=== PATIENT | male | born 1975 | race Caucasian/White ===

== ENCOUNTER 2018-03-13 04:00 | Emergency (ER) | payer SELFPAY ==
[2018-03-13] MEDS ORDERED: LIDOCAINE VISCOUS 2% SOLN 15 ML UDC ONE (04:50)
[2018-03-13] MEDS ORDERED: MAGNE/ALUM HYDROXD 30 ML UCUP ONE (04:50)
[2018-03-13 05:03] LABS: Absolute Lymphocytes (CBC) 2.4 K/uL (0.7-4.9); Absolute Monocytes 0.9 K/uL (0.1-1.3); Absolute Neutrophil 4.5 K/uL (1.8-8.0); Basophils % 0.6 % (0-1.3); Eosinophils % 2.8 % (0-4.4); Hematocrit 40.4 % (39.6-49.0); Lymphocytes % 29.6 % (15.3-44.8); MCH 34.1 pg (27.0-35.0); MCV 98.9 fL (80-100); MPV 8.2 fL (7.6-11.3); Monocytes % 11.4 % (3.3-12.3); RBC Red Blood Cell Count 4.08 M/uL (4.33-5.43)
[2018-03-13 05:26] LABS: ALT/SGPT 37 U/L (12-78); AST/SGOT 20 U/L (15-37); Albumin 3.5 g/dL (3.4-5.0); Alkaline Phosphatase 54 U/L (45-117); BUN Blood Urea Nitrogen 15 mg/dL (7-18); Bicarbonate 28 mmol/L (21-32); Bilirubin Direct 0.1 mg/dL (0-0.2); Bilirubin Total 0.5 mg/dL (0.2-1.0); CKMB Creatine Kinase MB 3.2 ng/mL (0.3-3.6); Creatine Phosphokinase 111 U/L (39-308); Glucose Level 92 mg/dL (74-106); Lipase 181 U/L (73-393); Potassium 4.1 mmol/L (3.5-5.1); Sodium Level 143 mmol/L (136-145)
--- NOTE | 2018-03-13 05:40 | ER ---
Nurse's Notes [facility] Name: Inder Steel Jr Age: 42 yrs Sex: Male : 1975 Arrival Date: 03/13/2018 Time: 04:20 Bed 15 Private MD: Diagnosis: Gastro-esophageal reflux disease;Chest pain, unspecified Presentation: 03/13 04:00 Presenting complaint: EMS states: Reports he started having chest pain 5 hours ago, ea reported n/v/d x 1 about 30 minutes ago. Transition of care: patient was not received from another setting of care. Onset of symptoms was March 13, 2018. Risk Assessment: Do you want to hurt yourself or someone else? Patient reports no desire to harm self or others. Initial Sepsis Screen: Does the patient meet any 2 criteria? No. Patient's initial sepsis screen is negative. Does the patient have a suspected source of infection? No. Patient's initial sepsis screen is negative. Care prior to arrival: None. 04:00 Method Of Arrival: EMS: [facility] ea 04:00 Acuity: ARCENIO 3 ea Triage Assessment: 04:24 General: Appears uncomfortable, Behavior is calm, cooperative, appropriate for age. ea Pain: Complains of pain in chest Pain does not radiate. Pain currently is 9 out of 10 on a pain scale. Quality of pain is described as burning, Pain began 4 hours ago. EENT: No signs and/or symptoms were reported regarding the EENT system. Neuro: Level of Consciousness is awake, alert, obeys commands, Oriented to person, place, time, situation. Cardiovascular: Heart tones S1 S2 present Patient's skin is warm and dry. Rhythm is regular. Respiratory: Airway is patent Respiratory effort is even, unlabored, Respiratory pattern is regular, symmetrical. GI: Bowel sounds present X 4 quads. Reports nausea. : No signs and/or symptoms were reported regarding the genitourinary system. Derm: Skin is pink, warm \T\ dry. Musculoskeletal: Circulation, motion, and sensation intact. Historical: - Allergies: 04:23 No Known Allergies; ea - Home Meds: 04:23 None [Active]; ea - PMHx: 04:23 None; ea - PSHx: 04:23 None; ea - Immunization history:: Adult Immunizations up to date. - Social history:: Smoking status: Patient uses tobacco products, cigars. - Ebola Screening: : No symptoms or risks identified at this time. - Family history:: not pertinent. - Hospitalizations: : No recent hospitalization is reported. Screenin:26 Abuse screen: Denies threats or abuse. Nutritional screening: No deficits noted. ea Tuberculosis screening: No symptoms or risk factors identified. Fall Risk None identified. Assessment: 05:18 Reassessment: Patient and/or family updated on plan of care and expected duration. Pain ea level reassessed. Patient is alert, oriented x 3, equal unlabored respirations, skin warm/dry/pink. Reassessment: Patient states feeling better. Patient states symptoms have improved. Pain: Denies pain. 05:45 Reassessment: Patient and/or family updated on plan of care and expected duration. Pain ea level reassessed. Patient is alert, oriented x 3, equal unlabored respirations, skin warm/dry/pink. Discharge instructions given to patient, verbalized the understanding of instructions. Patient states feeling better. Patient states symptoms have improved. Vital Signs: 04:00 BP 133 / 67; Pulse 70; Resp 18; Temp 97.6; Pulse Ox 99% on R/A; Weight 99.79 kg; Height ea 5 ft. 10 in. (177.80 cm); Pain 9/10; 05:19 BP 116 / 78; Pulse 73; Resp 18; Pulse Ox 96% on R/A; Pain 0/10; ea 04:00 Body Mass Index 31.57 (99.79 kg, 177.80 cm) ea ED Course: 04:00 Arm band placed on right wrist. Patient placed in an exam room, on a stretcher, on ea pulse oximetry. 04:20 Patient arrived in ED. ea 04:23 Triage completed. ea 04:26 Patient has correct armband on for positive identification. Bed in low position. Call ea light in reach. Side rails up X 1. pulmonologist on. Pulse ox on. NIBP on. 04:27 Inserted saline lock: 20 gauge in right antecubital area, using aseptic technique. ea Blood collected. Patient maintains SpO2 saturation greater than 95% on room air. 04:31 Corey Pablo MD is Attending Physician. rn 04:38 Nora Long RN is Primary Nurse. ea 04:55 X-ray completed. Portable x-ray completed in exam room. Patient tolerated procedure kp1 well. 04:58 XRAY Chest (1 view) In Process Unspecified. EDMS 05:39 Uvaldo Cedillo MD is Referral Physician. rn 05:45 No provider procedures requiring assistance completed. IV discontinued, intact, ea bleeding controlled, No redness/swelling at site. Pressure dressing applied. Administered Medications: 04:50 Drug: GI Cocktail without - (Maalox Suspension 30 ml, Lidocaine Liquid 2 % 15 ea ml) Route: PO; 05:18 Follow up: Response: No adverse reaction; Marked relief of symptoms ea Outcome: 05:39 Discharge ordered by . rn 05:46 Discharged to home ambulatory, with family. ea 05:46 Condition: improved 05:46 Discharge instructions given to patient, Instructed on discharge instructions, follow up and referral plans. Demonstrated understanding of instructions, follow-up care. 05:46 Patient left the ED. ea Signatures: Dispatcher [employer] EDMS Corey Pablo MD MD rn Poole, Kathy kp1 Nora Long RN PERLA dougherty
--- NOTE | 2018-03-13 05:40 | EDPHYS ---
Physician Documentation [facility] Name: Inder Steel Jr Age: 42 yrs Sex: Male : 1975 Arrival Date: 03/13/2018 Time: 04:20 Bed 15 Private MD: ED Physician Corey Pablo HPI: 03/13 04:52 This 42 yrs old Male presents to ER via EMS with complaints of Chest Pain > rn 32 y/o. 04:52 The patient or guardian reports chest pain that is located primarily in the substernal rn area. Onset: 5 hour(s) ago. The pain radiates to neck. The chest pain is described as burning. Duration: The patient or guardian reports multiple episodes, that are intermittent. Modifying factors: The symptoms are alleviated by nothing. the symptoms are aggravated by eating. Severity of pain: At its worst the pain was moderate in the emergency department the pain has improved. The patient has experienced similar episodes in the past. Reports pain for months, usually burning pain in throat and chest, happens at night when lays down, no fever/cough, worse tonight, doesn't take antacids, + vomited once. . Historical: - Allergies: 04:23 No Known Allergies; ea - Home Meds: 04:23 None [Active]; ea - PMHx: 04:23 None; ea - PSHx: 04:23 None; ea - Immunization history:: Adult Immunizations up to date. - Social history:: Smoking status: Patient uses tobacco products, cigars. - Ebola Screening: : No symptoms or risks identified at this time. - Family history:: not pertinent. - Hospitalizations: : No recent hospitalization is reported. ROS: 04:52 Constitutional: Negative for fever, chills, and weight loss, Eyes: Negative for injury, rn pain, redness, and discharge, Cardiovascular: Negative for palpitations, and edema, Respiratory: Negative for shortness of breath, cough, wheezing, and pleuritic chest pain, Abdomen/GI: Negative for abdominal pain, diarrhea, and constipation, MS/Extremity: Negative for injury and deformity, Skin: Negative for injury, rash, and discoloration, Neuro: Negative for headache, weakness, numbness, tingling, and seizure. Exam: 04:52 Constitutional: This is a well developed, well nourished patient who is awake, alert, rn and in no acute distress. Head/Face: Normocephalic, atraumatic. Eyes: Pupils equal round and reactive to light, extra-ocular motions intact. Lids and lashes normal. Conjunctiva and sclera are non-icteric and not injected. Cornea within normal limits. Periorbital areas with no swelling, redness, or edema. Neck: Trachea midline, no thyromegaly or masses palpated, and no cervical lymphadenopathy. Supple, full range of motion without nuchal rigidity, or vertebral point tenderness. No Meningismus. Cardiovascular: Regular rate and rhythm with a normal S1 and S2. No gallops, murmurs, or rubs. Normal PMI, no JVD. No pulse deficits. Respiratory: Lungs have equal breath sounds bilaterally, clear to auscultation and percussion. No rales, rhonchi or wheezes noted. No increased work of breathing, no retractions or nasal flaring. Abdomen/GI: Soft, non-tender, with normal bowel sounds. No distension or tympany. No guarding or rebound. No evidence of tenderness throughout. MS/ Extremity: Pulses equal, no cyanosis. Neurovascular intact. Full, normal range of motion. Equal circumference. Neuro: Awake and alert, GCS 15, oriented to person, place, time, and situation. Cranial nerves II-XII grossly intact. Motor strength 5/5 in all extremities. Sensory grossly intact. Vital Signs: 04:00 BP 133 / 67; Pulse 70; Resp 18; Temp 97.6; Pulse Ox 99% on R/A; Weight 99.79 kg; Height ea 5 ft. 10 in. (177.80 cm); Pain 9/10; 05:19 BP 116 / 78; Pulse 73; Resp 18; Pulse Ox 96% on R/A; Pain 0/10; ea 04:00 Body Mass Index 31.57 (99.79 kg, 177.80 cm) ea MDM: 04:31 Patient medically screened. rn 05:37 Differential diagnosis: acute myocardial infarction, anxiety, chest wall pain, rn esophagitis, gastritis, gastroesophageal reflux disease (GERD), pancreatitis, peptic ulcer disease, pneumothorax. Data reviewed: vital signs, nurses notes, lab test result(s), EKG, radiologic studies, plain films, and as a result, I will discharge patient. Counseling: I had a detailed discussion with the patient and/or guardian regarding: the historical points, exam findings, and any diagnostic results supporting the discharge/admit diagnosis, lab results, radiology results, the need for outpatient follow up, to return to the emergency department if symptoms worsen or persist or if there are any questions or concerns that arise at home. Response to treatment: the patient's symptoms have markedly improved after treatment, the patient's condition has returned to base line, the patient is now symptom free, and as a result, I will discharge patient. Special discussion: Based on the patient's history, exam, and Dx evaluation, there is no indication for emergent intervention or inpatient Tx. It is understood by the patient/guardian that if the Sx's persist or worsen they need to return immediately for re-evaluation. I discussed with the patient/guardian in detail that at this point there is no indication for admission to the hospital. It is understood, however, that if the symptoms persist or worsen the patient needs to return immediately for re-evaluation. Based on the history and exam findings, there is no indication for further emergent testing or inpatient evaluation. I discussed with the patient/guardian the need to see the hoop cutter for further evaluation of the symptoms. ED course: Pain resolved with GI cocktail, months of symptoms, worse after eating and at night, burning sensation, normal ecg and trop, most likely GERD with possible complications of GERD, recommended to him OTC acid medication and GI f/u for scope. . 03/13 04:42 Order name: Basic Metabolic Panel; Complete Time: 05:30 03/13 04:42 Order name: CBC with Diff; Complete Time: 05:30 03/13 04:42 Order name: Ckmb; Complete Time: 05:30 03/13 04:42 Order name: CPK; Complete Time: 05:30 03/13 04:42 Order name: LFT's; Complete Time: 05:30 03/13 04:42 Order name: Troponin (emerg Dept Use Only); Complete Time: 05:30 03/13 04:42 Order name: XRAY Chest (1 view) 03/13 04:42 Order name: EKG; Complete Time: 04:44 03/13 04:42 Order name: Cardiac monitoring; Complete Time: 04:43 03/13 04:42 Order name: EKG - Nurse/Tech; Complete Time: 04:43 rn 03/13 04:42 Order name: IV Saline Lock; Complete Time: 04:43 rn 03/13 04:42 Order name: Labs collected and sent; Complete Time: 04:43 rn 03/13 04:42 Order name: Lipase; Complete Time: 05:30 rn 03/13 04:42 Order name: O2 Per Protocol; Complete Time: 04:43 rn 03/13 04:42 Order name: O2 Sat Monitoring; Complete Time: 04:43 rn Administered Medications: 04:50 Drug: GI Cocktail without - (Maalox Suspension 30 ml, Lidocaine Liquid 2 % 15 ea ml) Route: PO; 05:18 Follow up: Response: No adverse reaction; Marked relief of symptoms ea Disposition: 03/13/18 05:39 Discharged to Home. Impression: Gastro-esophageal reflux disease, Chest pain, unspecified. - Condition is Stable. - Discharge Instructions: Nonspecific Chest Pain, Gastroesophageal Reflux Disease, Adult. - Medication Reconciliation Form, Thank You Letter, Antibiotic Education, Prescription Opioid Use form. - Follow up: Uvaldo Cedillo MD; When: As needed; Reason: Recheck today's complaints, Re-evaluation by your physician. - Problem is an ongoing problem. - Symptoms have improved. Signatures: Dispatcher [employer] EDCorey Becker MD MD rn Antunez, Elena, RN RN ea Corrections: (The following items were deleted from the chart) 05:46 05:39 03/13/2018 05:39 Discharged to Home. Impression: Gastro-esophageal reflux ea disease; Chest pain, unspecified. Condition is Stable. Forms are Medication Reconciliation Form, Thank You Letter, Antibiotic Education, Prescription Opioid Use. Follow up: Uvaldo Cedillo; When: As needed; Reason: Recheck today's complaints, Re-evaluation by your physician. Problem is an ongoing problem. Symptoms have improved. rn
--- NOTE | 2018-03-13 07:25 | EKG ---
Test Date: 2018-03-13 Test Time: 04:10:57 Educational Paraprofessional: GARETT MEASUREMENT RESULTS: Intervals: Rate: 67 NM: 150 QRSD: 98 QT: 386 QTc: 407 [place]: P: 15 NM: 150 QRS: -27 T: 15 INTERPRETIVE STATEMENTS: Normal sinus rhythm Normal ECG Compared to ECG 01/05/2010 16:34:45 Junctional rhythm no longer present ST (T wave) deviation no longer present Electronically Signed On 03-13-18 07:24:32 CDT by Javi Garcia
--- NOTE | 2018-03-13 11:28 | RAD REPORT ---
EXAM DESCRIPTION: RAD - Chest Single View - 03/13/2018 5:52 am CLINICAL HISTORY: CHEST PAIN Chest pain. COMPARISON: CHEST SINGLE VIEW dated 01/05/2010; CHEST SINGLE VIEW dated 05/24/2009 FINDINGS: Portable technique limits examination quality. The lungs are grossly clear. The heart is normal in size. No displaced fractures. IMPRESSION: No acute intrathoracic process suspected.
== END 2018-03-13 05:46 | disposition home or self-care (01) ==
LOC: ER 04:00
DX: K21.9 Gastro-esophageal reflux disease without esophagitis (principal); F17.210 Nicotine dependence, cigarettes, uncomplicated
CPT/HCPCS: 36415; 71045; 80048; 80076; 82550; 82553; 83690; 84484; 85025; 93005; 99285

== ENCOUNTER 2018-11-18 22:51 | Emergency (ER) | payer SELFPAY ==
[2018-11-18] MEDS ORDERED: SUCRALFATE 1 GM TABLET ONE (23:30)
[2018-11-18 23:39] LABS: Absolute Lymphocytes (CBC) 3.4 K/uL (0.7-4.9); Absolute Monocytes 1.2 K/uL (0.1-1.3); Absolute Neutrophil 6.5 K/uL (1.8-8.0); Basophils % 0.8 % (0-1.3); Eosinophils % 3.4 % (0-4.4); Hematocrit 44.1 % (39.6-49.0); Lymphocytes % 29.2 % (15.3-44.8); Monocytes % 10.3 % (3.3-12.3); RBC Red Blood Cell Count 4.57 M/uL (4.33-5.43)
[2018-11-18 23:44] LABS: Protime INR 0.9
[2018-11-19 00:05] LABS: ALT/SGPT 32 U/L (12-78); AST/SGOT 16 U/L (15-37); Albumin 3.7 g/dL (3.4-5.0); Alkaline Phosphatase 63 U/L (45-117); BUN Blood Urea Nitrogen 17 mg/dL (7-18); Bicarbonate 29 mmol/L (21-32); Bilirubin Direct < 0.1 mg/dL (0-0.2); Bilirubin Total 0.3 mg/dL (0.2-1.0); Glucose Level 108 mg/dL (74-106); Magnesium 3.1 mg/dL (1.8-2.4); NT PRO-BNP 13 pg/mL (<125); Potassium 4.2 mmol/L (3.5-5.1); Protein, Total 7.3 g/dL (6.4-8.2); Sodium Level 139 mmol/L (136-145); Troponin (Emerg Dept Use Only) < 0.02 ng/mL (0.0-0.045)
--- NOTE | 2018-11-19 01:12 | EDPHYS ---
Physician Documentation [facility] Name: Inder Steel Jr Age: 43 yrs Sex: Male : 1975 Arrival Date: 11/18/2018 Time: 22:52 Bed 26 Private MD: ED Physician Fabricio Trujillo HPI: 11/19 03:20 This 43 yrs old Male presents to ER via EMS with complaints of Chest Pain. snw 03:20 Onset: The symptoms/episode began/occurred gradually, 3 year(s) ago, and became worse snw today. Associated signs and symptoms: Pertinent positives: chest pain. The patient has experienced similar episodes in the past, chronically. It is unknown whether or not the patient has recently seen a physician. dx with GERD, smokes. Historical: - Allergies: 11/18 22:54 No Known Allergies; ca1 - Home Meds: 22:54 None [Active]; ca1 - PMHx: 22:54 None; ca1 - PSHx: 22:54 R leg; Tonsillectomy; ca1 - Immunization history:: Flu vaccine is not up to date. - Social history:: Smoking status: Patient uses tobacco products, smokes one-half pack cigarettes per day. - Ebola Screening: : No symptoms or risks identified at this time. ROS: 11/19 03:19 Constitutional: Negative for fever, chills, and weight loss, Eyes: Negative for injury, snw pain, redness, and discharge, ENT: Negative for injury, pain, and discharge, Neck: Negative for injury, pain, and swelling, Respiratory: Negative for shortness of breath, cough, wheezing, and pleuritic chest pain, Abdomen/GI: Negative for abdominal pain, nausea, vomiting, diarrhea, and constipation, Back: Negative for injury and pain, : Negative for injury, bleeding, discharge, and swelling, MS/Extremity: Negative for injury and deformity, Skin: Negative for injury, rash, and discoloration, Neuro: Negative for headache, weakness, numbness, tingling, and seizure. Cardiovascular: Positive for chest pain, x 3 years but worse today. Exam: 02:53 Head/Face: Normocephalic, atraumatic. Eyes: Pupils equal round and reactive to light, snw extra-ocular motions intact. Lids and lashes normal. Conjunctiva and sclera are non-icteric and not injected. Cornea within normal limits. Periorbital areas with no swelling, redness, or edema. ENT: Nares patent. No nasal discharge, no septal abnormalities noted. Tympanic membranes are normal and external auditory canals are clear. Oropharynx with no redness, swelling, or masses, exudates, or evidence of obstruction, uvula midline. Mucous membranes moist. Neck: Trachea midline, no thyromegaly or masses palpated, and no cervical lymphadenopathy. Supple, full range of motion without nuchal rigidity, or vertebral point tenderness. No Meningismus. Chest/axilla: Normal chest wall appearance and motion. Nontender with no deformity. No lesions are appreciated. Cardiovascular: Regular rate and rhythm with a normal S1 and S2. No gallops, murmurs, or rubs. Normal PMI, no JVD. No pulse deficits. Respiratory: Lungs have equal breath sounds bilaterally, clear to auscultation and percussion. No rales, rhonchi or wheezes noted. No increased work of breathing, no retractions or nasal flaring. Abdomen/GI: Soft, non-tender, with normal bowel sounds. No distension or tympany. No guarding or rebound. No evidence of tenderness throughout. Back: No spinal tenderness. No costovertebral tenderness. Full range of motion. Skin: Warm, dry with normal turgor. Normal color with no rashes, no lesions, and no evidence of cellulitis. MS/ Extremity: Pulses equal, no cyanosis. Neurovascular intact. Full, normal range of motion. Neuro: Awake and alert, GCS 15, oriented to person, place, time, and situation. Cranial nerves II-XII grossly intact. Motor strength 5/5 in all extremities. Sensory grossly intact. Cerebellar exam normal. Normal gait. Psych: Awake, alert, with orientation to person, place and time. Behavior, mood, and affect are within normal limits. 02:53 Constitutional: The patient appears pt requested a sprite as soon as he arrived. IV started, EKG, Labs performed. Pt requested Milk. No further po until eval. Upon my assessment pt was sleeping, unable to keep his eyes open to speak with me. Significant other stated pt needed pain medications. Pt sedate, audible wheezing. Notified S.O. that I would not be prescribing narcotics as pt unable to wake. Nebs begun. S.O. states pt needs pain medications. As, pt's symptoms are likely related to his GERD I ordered protonix and tylenol. S.O upset with this decision. She and pt refuse to leave ED upon discharge until he is given narcotic pain medication. Vital Signs: 11/18 22:54 BP 127 / 79; Pulse 82; Resp 17 S; Temp 97.2(O); Pulse Ox 95% on R/A; Weight 108.86 kg; ca1 Height 5 ft. 10 in. (177.80 cm); Pain 8/10; 11/19 00:01 BP 126 / 93; Pulse 75; Resp 21 S; Pulse Ox 97% on R/A; ca1 00:26 BP 134 / 79; Pulse 81; Resp 18 S; Pulse Ox 95% on R/A; ca1 01:49 BP 137 / 84; Pulse 81; Resp 18; Pulse Ox 98% on R/A; Pain 4/10; mg2 03:12 BP 135 / 70; Pulse 82; Resp 18; Pulse Ox 100% on R/A; Pain 0/10; mg2 11/18 22:54 Body Mass Index 34.44 (108.86 kg, 177.80 cm) ca1 MDM: 11/18 23:54 Patient medically screened. snw 11/19 03:21 Data reviewed: vital signs, nurses notes. Data interpreted: Pulse oximetry: on room air snw is 100 %. Interpretation: normal. Counseling: I had a detailed discussion with the patient and/or guardian regarding: the historical points, exam findings, and any diagnostic results supporting the discharge/admit diagnosis, lab results, radiology results, the need for outpatient follow up, to return to the emergency department if symptoms worsen or persist or if there are any questions or concerns that arise at home, smoking cessation. Special discussion: Based on the patient's history, exam, and Dx evaluation, there is no indication for emergent intervention or inpatient Tx. It is understood by the patient/guardian that if the Sx's persist or worsen they need to return immediately for re-evaluation. Based on the patient's Hx, exam, and Dx evaluation, there is no indication for emergent surgery or inpatient Tx. It is understood by the patient/guardian that if the Sx's persist or worsen they need to return immediately for re-evaluation. Based on the history and exam findings, there is no indication for further emergent testing or inpatient evaluation. I discussed with the patient/guardian the need to see the machine spring former for further evaluation of the symptoms. I discussed with the patient/guardian the need to see the primary care provider for further evaluation of the symptoms. 11/18 23:09 Order name: Basic Metabolic Panel; Complete Time: 00:30 snw 11/18 23:09 Order name: CBC with Diff; Complete Time: 23:42 snw 11/18 23:09 Order name: LFT's; Complete Time: 00:30 snw 11/18 23:09 Order name: Magnesium; Complete Time: 00:30 snw 11/18 23:09 Order name: NT PRO-BNP; Complete Time: 00:30 snw 11/18 23:09 Order name: PT-INR; Complete Time: 23:51 snw 11/18 23:09 Order name: Troponin (emerg Dept Use Only); Complete Time: 00:30 snw 11/18 23:09 Order name: XRAY Chest (1 view) w 11/18 23:09 Order name: EKG; Complete Time: 23:10 snw 11/18 23:09 Order name: DD; Complete Time: 23:51 snw 11/18 23:09 Order name: Cardiac monitoring; Complete Time: 23:38 snw 11/18 23:09 Order name: EKG - Nurse/Tech; Complete Time: 23:38 snw 11/18 23:09 Order name: IV Saline Lock; Complete Time: 23:38 snw 11/18 23:09 Order name: Labs collected and sent; Complete Time: 23:38 snw 11/18 23:09 Order name: O2 Per Protocol; Complete Time: 23:38 snw 11/18 23:09 Order name: O2 Sat Monitoring; Complete Time: 23:38 snw Administered Medications: 11/18 23:38 Drug: CarafATE 1 grams Route: PO; mg2 11/19 00:30 Follow up: Response: No adverse reaction; Marked relief of symptoms mg2 01:13 Drug: Albuterol 2.5 mg Route: Inhalation; ca1 01:32 Follow up: Response: No adverse reaction; Marked relief of symptoms mg2 01:48 Drug: ProTONIX 40 mg Route: PO; mg2 02:54 Follow up: Response: No adverse reaction; Marked relief of symptoms mg2 01:48 Drug: Tylenol 1000 mg Route: PO; mg2 02:54 Follow up: Response: No adverse reaction; Marked relief of symptoms mg2 Disposition: 06:07 Co-signature as Attending Physician, Fabricio Trujillo MD I agree with the assessment and tw4 plan of care. Disposition: 11/19/18 01:11 Discharged to Home. Impression: Chest pain, unspecified, Chronic obstructive pulmonary disease with (acute) exacerbation. - Condition is Stable. - Discharge Instructions: Nonspecific Chest Pain, Chronic Obstructive Pulmonary Disease, Food Choices for Gastroesophageal Reflux Disease, Adult, Gastroesophageal Reflux Disease, Adult, Steps to Quit Smoking, Smoking Hazards, Esophagogastroduodenoscopy. - Prescriptions for Protonix 40 mg Oral Tablet - take 1 tablet by ORAL route once daily; 30 tablet. Carafate 1 gram Oral Tablet - take 2 tablet by ORAL route every 12 hours take on an empty stomach, beginning on waking and last dose at bedtime; 100 tablet. - Work release form, Medication Reconciliation Form, Thank You Letter, Antibiotic Education, Prescription Opioid Use form. - Follow up: Private Physician; When: 2 - 3 days; Reason: Recheck today's complaints, Continuance of care, Re-evaluation by your physician. Follow up: Emergency Department; When: As needed; Reason: Worsening of condition. Signatures: Dispatcher [employer] EDMS Hansa Hicks, GELY-C HI LO DRIVER-Csnw Fabricio Trujillo MD MD tw4 Jerzy Robison RN RN mg2 Maria De Jesus Llamas RN RN ca1 Corrections: (The following items were deleted from the chart) 03:13 01:11 11/19/2018 01:11 Discharged to Home. Impression: Chest pain, unspecified; Chronic mg2 obstructive pulmonary disease with (acute) exacerbation. Condition is Stable. Discharge Instructions: Nonspecific Chest Pain, Chronic Obstructive Pulmonary Disease, Food Choices for Gastroesophageal Reflux Disease, Adult, Gastroesophageal Reflux Disease, Adult, Steps to Quit Smoking, Smoking Hazards, Esophagogastroduodenoscopy. Prescriptions for Protonix 40 mg Oral Tablet - take 1 tablet by ORAL route once daily; 30 tablet, Carafate 1 gram Oral Tablet - take 2 tablet by ORAL route every 12 hours take on an empty stomach, beginning on waking and last dose at bedtime; 100 tablet. and Forms are Work release form, Medication Reconciliation Form, Thank You Letter, Antibiotic Education, Prescription Opioid Use. Follow up: Private Physician; When: 2 - 3 days; Reason: Recheck today's complaints, Continuance of care, Re-evaluation by your physician. Follow up: Emergency Department; When: As needed; Reason: Worsening of condition. snw
--- NOTE | 2018-11-19 01:12 | ER ---
Nurse's Notes [facility] Name: Inder Steel Jr Age: 43 yrs Sex: Male : 1975 Arrival Date: 11/18/2018 Time: 22:52 Bed 26 Private MD: Diagnosis: Chest pain, unspecified;Chronic obstructive pulmonary disease with (acute) exacerbation Presentation: 11/18 22:54 Presenting complaint: EMS states: pt has chest pain for 3 years now but worst today. ca1 Reports of increasing pain upon inhalation and cough. VS are stable and within normal range. Transition of care: patient was not received from another setting of care. Onset of symptoms was November 18, 2018. Risk Assessment: Do you want to hurt yourself or someone else? Patient reports no desire to harm self or others. Initial Sepsis Screen: Does the patient meet any 2 criteria? No. Patient's initial sepsis screen is negative. Does the patient have a suspected source of infection? No. Patient's initial sepsis screen is negative. Care prior to arrival: None. 22:54 Method Of Arrival: EMS: [facility] ca1 22:54 Acuity: ARCENIO 3 ca1 Triage Assessment: 22:54 General: Appears in no apparent distress. uncomfortable, Behavior is calm, cooperative, ca1 appropriate for age. Pain: Complains of pain in chest. Historical: - Allergies: 22:54 No Known Allergies; ca1 - Home Meds: 22:54 None [Active]; ca1 - PMHx: 22:54 None; ca1 - PSHx: 22:54 R leg; Tonsillectomy; ca1 - Immunization history:: Flu vaccine is not up to date. - Social history:: Smoking status: Patient uses tobacco products, smokes one-half pack cigarettes per day. - Ebola Screening: : No symptoms or risks identified at this time. Screenin:39 Abuse screen: Denies threats or abuse. Denies injuries from another. Nutritional mg2 screening: No deficits noted. Tuberculosis screening: No symptoms or risk factors identified. Fall Risk IV access (20 points). Assessment: 23:00 General: Appears in no apparent distress. uncomfortable, Behavior is calm, cooperative, ca1 appropriate for age. Pain: Complains of pain in chest Pain does not radiate. Pain currently is 8 out of 10 on a pain scale. Quality of pain is described as sharp. Neuro: Level of Consciousness is awake, alert, obeys commands, Oriented to person, place, time, situation. Cardiovascular: Heart tones S1 S2 present Capillary refill < 3 seconds Patient's skin is warm and dry. Respiratory: Airway is patent Respiratory effort is even, unlabored, Respiratory pattern is regular, symmetrical, Breath sounds are clear bilaterally. Respiratory: Reports cough that is. GI: Abdomen is round non-distended, Bowel sounds present X 4 quads. Abd is soft and non tender X 4 quads. : No deficits noted. No signs and/or symptoms were reported regarding the genitourinary system. EENT: No deficits noted. No signs and/or symptoms were reported regarding the EENT system. Derm: Skin is intact, is healthy with good turgor, Skin is pink, warm \T\ dry. Musculoskeletal: Circulation, motion, and sensation intact. Capillary refill < 3 seconds. 11/19 00:01 Reassessment: Patient appears in no apparent distress at this time. Patient and/or ca1 family updated on plan of care and expected duration. Pain level reassessed. Patient is alert, oriented x 3, equal unlabored respirations, skin warm/dry/pink. 00:26 Reassessment: Patient appears in no apparent distress at this time. Significant other ca1 at bedside. Eyes closed with equal and unlabored breathing. 01:55 Reassessment: patient is for discharge already. discharge instructions were given but mg2 still wanna stay for observation if the medication will work. 03:11 Reassessment: Patient states feeling better. Patient states symptoms have improved. mg2 Vital Signs: 11/18 22:54 BP 127 / 79; Pulse 82; Resp 17 S; Temp 97.2(O); Pulse Ox 95% on R/A; Weight 108.86 kg; ca1 Height 5 ft. 10 in. (177.80 cm); Pain 8/10; 11/19 00:01 BP 126 / 93; Pulse 75; Resp 21 S; Pulse Ox 97% on R/A; ca1 00:26 BP 134 / 79; Pulse 81; Resp 18 S; Pulse Ox 95% on R/A; ca1 01:49 BP 137 / 84; Pulse 81; Resp 18; Pulse Ox 98% on R/A; Pain 4/10; mg2 03:12 BP 135 / 70; Pulse 82; Resp 18; Pulse Ox 100% on R/A; Pain 0/10; mg2 11/18 22:54 Body Mass Index 34.44 (108.86 kg, 177.80 cm) ca1 ED Course: 11/18 22:52 Patient arrived in ED. ds1 22:53 Maira De Jesus Llamas, RN is Primary Nurse. ca1 22:54 Arm band placed on right wrist. ca1 22:56 Triage completed. ca1 23:07 [facility] Hicks [facility]C [facility] snw 23:07 Fabricio Trujillo MD is Attending Physician. snw 23:39 Patient has correct armband on for positive identification. Pulse ox on. NIBP on. Door mg2 closed. 23:39 Inserted saline lock: 20 gauge in right forearm, using aseptic technique. Blood mg2 collected. 23:54 XRAY Chest (1 view) In Process Unspecified. EDMS 04 00:02 No provider procedures requiring assistance completed. mg2 03:12 IV discontinued, intact, bleeding controlled, No redness/swelling at site. Pressure mg2 dressing applied. Administered Medications: 11/18 23:38 Drug: CarafATE 1 grams Route: PO; mg2 04 00:30 Follow up: Response: No adverse reaction; Marked relief of symptoms mg2 01:13 Drug: Albuterol 2.5 mg Route: Inhalation; ca1 01:32 Follow up: Response: No adverse reaction; Marked relief of symptoms mg2 01:48 Drug: ProTONIX 40 mg Route: PO; mg2 02:54 Follow up: Response: No adverse reaction; Marked relief of symptoms mg2 01:48 Drug: Tylenol 1000 mg Route: PO; mg2 02:54 Follow up: Response: No adverse reaction; Marked relief of symptoms mg2 Outcome: 01:11 Discharge ordered by . snw 03:12 Discharged to home ambulatory, with family. mg2 03:12 Condition: stable 03:12 Discharge instructions given to patient, family, Instructed on discharge instructions, follow up and referral plans. medication usage, Demonstrated understanding of instructions, follow-up care, medications, Prescriptions given X 2. 03:13 Patient left the ED. mg2 Signatures: Dispatcher [employer] EDMS Hansa Hicks FNP-C RECOVERY OPERATOR HELPER-CsnKalie Goel ds1 Jerzy Robison RN RN mg2 Maria De Jesus Llamas RN RN ca1 Corrections: (The following items were deleted from the chart) 00:20 00:01 BP 126 / 93; Pulse 75bpm; Resp 21bpm; Pulse Ox 97% RA; ca1 ca1
[2018-11-19] MEDS ORDERED: ALBUTEROL 2.5 MG/3 ML NEB SOL ONE (01:25)
[2018-11-19] MEDS ORDERED: ACETAMINOPHEN 500 MG TAB ONE (01:48)
[2018-11-19] MEDS ORDERED: PANTOPRAZOLE 40 MG INJ ONE (01:49)
[2018-11-19] MEDS ORDERED: PANTOPRAZOLE 40MG TABLET PO ONE (01:50)
--- NOTE | 2018-11-19 07:43 | EKG ---
Test Date: 2018-11-18 Test Time: 23:35:56 Freelance Photographer: MEASUREMENT RESULTS: Intervals: Rate: 75 OH: 146 QRSD: 92 QT: 370 QTc: 413 [place]: P: 61 OH: 146 QRS: 97 T: 69 INTERPRETIVE STATEMENTS: Normal sinus rhythm Rightward axis Borderline ECG Compared to ECG 03/13/2018 04:10:57 Right-axis deviation now present Electronically Signed On 11-19-18 07:42:17 CDT by Javi Garcia
--- NOTE | 2018-11-19 08:26 | RAD REPORT ---
EXAM DESCRIPTION: RAD - Chest Single View - 11/18/2018 11:54 pm CLINICAL HISTORY: Chest pain COMPARISON: March 2018 TECHNIQUE: AP portable chest image was obtained 2331 hours . FINDINGS: Lungs are clear. Heart and vasculature are normal. No measurable pleural effusion and no p neumothorax. No acute bony abnormality seen. No acute aortic findings suspected. IMPRESSION: No acute cardiopulmonary process. No significant change from comparison.
== END 2018-11-19 03:13 | disposition home or self-care (01) ==
LOC: ER 22:51
DX: J44.1 Chronic obstructive pulmonary disease with (acute) exacerbation (principal); K21.9 Gastro-esophageal reflux disease without esophagitis; F17.210 Nicotine dependence, cigarettes, uncomplicated
CPT/HCPCS: 36415; 71045; 80048; 80076; 83735; 83880; 84484; 85025; 85379; 85610; 93005; 99285; C9113